=== PATIENT | female | born 1985 | race Caucasian/White ===

== ENCOUNTER 2016-07-21 13:08 | Emergency (ER) | payer OTHER | END 2016-07-21 17:49 | disposition home or self-care (01) | LOC: D.ER 13:08 | DX: R53.1 Weakness (principal); F32.9 Major depressive disorder, single episode, unspecified; M06.9 Rheumatoid arthritis, unspecified ==

== ENCOUNTER → 2017-03-29 10:51 | Outpatient (CLI) | payer OTHER ==
[2017-03-29 13:17] LABS: APPEARANCE - CSF COLORLESS; RBC - CSF 0 cmm (0-0)
[2017-03-29 13:25] LABS: GLUCOSE - CSF 54 MG/DL (40-75); PROTEIN - CSF 30 MG/DL (12-60)
[2017-03-30 19:08] LABS: AFB SPECIMEN PROCESSING Not Indicated (())
[2017-04-01 10:11] LABS: FUNGUS STAIN Final report (())
[2017-04-01 16:12] LABS: IGGS - IGG INDEX CSF 0.5 (0.0-0.7); IGGS - IGG SYNTHESIS RATE CSF -2.3 mg/day (-9.9 TO +3.3)
[2017-04-05 10:18] LABS: WNV - BY RAPID PCR Negative (())
[2017-04-26 12:16] LABS: FUNGUS MYCOLOGY CULTURE Final report (())
[2017-05-20 19:07] LABS: ACID FAST CULTURE Negative (()); ACID FAST SMEAR Negative (())
== END | disposition home or self-care (01) ==
LOC: D.RAD 10:51
PROVIDERS: Psychiatry & Neurology Neurology
DX: R55 Syncope and collapse (principal); H47.10 Unspecified papilledema

== ENCOUNTER → 2018-06-25 19:56 | Outpatient (CLI) | payer OTHER | END | disposition home or self-care (01) | LOC: D.MAMMO 15:00 | DX: R92.8 Other abnormal and inconclusive findings on diagnostic imaging of breast (principal) ==